=== PATIENT | female | born 1955 | race American Indian/Alaskan Native ===

== ENCOUNTER 2017-04-07 15:25 | Emergency (ER) | payer OTHER, BC ==
[2017-04-07] MEDS ORDERED: TORADOL IM ONE (19:28)
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
[2017-04-07 20:24] VITALS: BP 129/75
== END 2017-04-07 20:23 | disposition home or self-care (01) ==
LOC: ED 15:25
DX: M54.2 Cervicalgia (principal); M54.6 Pain in thoracic spine; V49.59XA Passenger injured in collision with other motor vehicles in traffic accident, initial encounter; Y93.9 Activity, unspecified; Y92.9 Unspecified place or not applicable; Y99.9 Unspecified external cause status; I10 Essential (primary) hypertension; E11.9 Type 2 diabetes mellitus without complications
CPT/HCPCS: 96372; 99282; J1885